=== PATIENT | female | born 1935 | race Caucasian/White ===

== ENCOUNTER → 2018-11-09 | Day surgery (SDC) | payer OTHER ==
--- NOTE | 2018-11-15 16:44 | PATH ---
Cytology Non-Gynecological Report Patient Name: INGA MEDINA [facility]. Rec. #: [id number] /Age/Gender: 1935 (Age: 83) / F Account: [id number] Location: RADIOLOGY INTER Taken: 11/10/2018 Received: 11/10/2018 Reported: 11/15/2018 Physicians: Artie Camarena M.D. Specimen(s) Received LEFT THYROID FNA Clinical History Left thyroid nodule Final Diagnosis THYROID, LEFT, FINE NEEDLE ASPIRATION: SATISFACTORY FOR EVALUATION BETHESDA CLASS II: BENIGN SMALL FOLLICULAR CELLS AND COLLOID PRESENT, CONSISTENT WITH A BENIGN FOLLICULAR NODULE. Electronically Signed Raya Castaneda M.D. Gross Description Received are eight direct smears, four of which are air-dried and Diff-Quik stained, and four of which are alcohol fixed and Pap stained. Also received is 20 ml of bloody formalin from which one cellblock is prepared.
== END | disposition home or self-care (01) ==
LOC: JRADIR 08:27
PROVIDERS: ATTEND Internal Medicine Endocrinology, Diabetes & Metabolism
PROC: 0GBG3ZX Excision of Left Thyroid Gland Lobe, Percutaneous Approach, Diagnostic (ICD-10-PCS; principal; 2018-11-09)
PROC: BG44ZZZ Ultrasonography of Thyroid Gland (ICD-10-PCS; 2018-11-09)
DX: D34 Benign neoplasm of thyroid gland (principal)
CPT/HCPCS: 10005; 76942; 88173; 88305-TC

== ENCOUNTER → 2018-11-16 | Day surgery (SDC) | payer OTHER ==
--- NOTE | 2018-11-18 18:03 | PATH ---
Cytology Non-Gynecological Report Patient Name: INGA MEDINA [facility]. Rec. #: [id number] /Age/Gender: 1935 (Age: 83) / F Account: [id number] Location: RADIOLOGY INTER Taken: 11/16/2018 Received: 11/16/2018 Reported: 11/18/2018 Physicians: Artie Camarena M.D. Specimen(s) Received RIGHT THYROID FNA Clinical History Right thyroid nodule Final Diagnosis THYROID, RIGHT, FINE NEEDLE ASPIRATION: SATISFACTORY FOR EVALUATION BETHESDA CLASS II: BENIGN SMALL FOLLICULAR CELLS, MACROPHAGES, AND COLLOID PRESENT, CONSISTENT WITH A BENIGN NODULE. Electronically Signed Raya Castaneda M.D. Gross Description Received are eight direct smears, four of which are air-dried and Diff-Quik stained, and four of which are alcohol fixed and Pap stained. Also received is 20 ml of bloody formalin from which one cellblock is prepared.
== END | disposition home or self-care (01) ==
LOC: JRADIR 08:52
PROVIDERS: ATTEND Internal Medicine Endocrinology, Diabetes & Metabolism
PROC: 0G9K3ZX Drainage of Thyroid Gland, Percutaneous Approach, Diagnostic (ICD-10-PCS; principal; 2018-11-16)
DX: E04.1 Nontoxic single thyroid nodule (principal)
CPT/HCPCS: 76942; 88173; 88305-TC

== ENCOUNTER 2021-01-02 12:22 | Inpatient (IN) | payer OTHER ==
[2021-01-02] MEDS ORDERED: ACETAMINOPHEN 325 MG TABLET (FP) PO ONE (13:06)
[2021-01-02] MEDS ORDERED: ACETAMINOPHEN 325 MG TABLET (FP) ONE ×2 (14:14→14:26)
[2021-01-02 15:38] LABS: BASO % 0.6 % (0-2.0); EOS % 1.4 % (0-4.5); HEMATOCRIT 44.6 % (32.4-45.2); HEMOGLOBIN 15.1 GM/dL (10.7-15.3); LYMPH % 18.8 % (8-40); MCHC 33.8 g/dl (32.0-36.0); MEAN CELL VOLUME 85.5 fl (80-96); MEAN PLT VOLUME 7.8 fl (7.5-11.1); MONO % 6.8 % (3.8-10.2); NEUT % 72.4 % (42.8-82.8); PLATELET COUNT 352 10^3/uL (134-434); RBC 5.21 M/mm3 (3.60-5.2); RDW 13.6 % (11.6-15.6); WHITE BLOOD COUNT 12.2 K/mm3 (4.0-10.0)
[2021-01-02 15:44] LABS: INR 0.99 (0.83-1.09); PROTHROMBIN TIME (PATIENT) 11.1 SEC (9.7-13.0)
[2021-01-02 15:47] LABS: ACTIVATED PTT 27.9 SECONDS (25.2-36.5)
[2021-01-02 15:58] LABS: CHLORIDE 101 mmol/L (98-107); SODIUM 137 mmol/L (136-145)
[2021-01-02 16:02] LABS: ANION GAP 11 MMOL/L (8-16); BLOOD UREA NITROGEN 31.1 mg/dL (7-18); CALCIUM 9.7 mg/dL (8.5-10.1); CO2 25 mmol/L (21-32)
[2021-01-02 16:03] LABS: GLUCOSE,RANDOM 114 mg/dL (74-106); MAGNESIUM 1.8 mg/dL (1.8-2.4)
[2021-01-02 16:05] LABS: SGOT/AST 22 U/L (15-37); SGPT/ALT 25 U/L (13-61)
[2021-01-02 16:06] LABS: CREATININE 0.9 mg/dL (0.55-1.3)
[2021-01-02 16:07] LABS: BILIRUBIN,TOTAL 0.6 mg/dL (0.2-1); TOT PROT 8.3 g/dl (6.4-8.2)
[2021-01-02 16:08] LABS: ALK PHOS 117 U/L (45-117)
[2021-01-02 18:16] LABS: URINE APPEARANCE CLEAR; URINE BILIRUBIN NEGATIVE (NEGATIVE); URINE COLOR YELLOW; URINE GLUCOSE (UA) NEGATIVE (NEGATIVE); URINE KETONE NEGATIVE (NEGATIVE); URINE LEUK ESTERASE NEGATIVE (NEGATIVE); URINE NITRITE NEGATIVE (NEGATIVE); URINE PROTEIN NEGATIVE (NEGATIVE); URINE UROBILINOGEN 0.2 mg/dL (0.2-1.0)
[2021-01-02] MEDS: HEPARIN NA (PORCINE) 5,000 UNITS/ML 1ML VIAL SQ SCH (22:37)
[2021-01-03 00:52] VITALS: BMI 28.5
[2021-01-03 06:41] VITALS: TEMP 98
[2021-01-03] MEDS ORDERED: LEVOTHYROXINE NA 25 MCG TABLET (FP) PO SCH (07:00)
[2021-01-03 07:15] LABS: HEMATOCRIT 39.7 % (32.4-45.2); HEMOGLOBIN 13.6 GM/dL (10.7-15.3); MCH 28.9 pg (25.7-33.7); MCHC 34.2 g/dl (32.0-36.0); MEAN CELL VOLUME 84.7 fl (80-96); MEAN PLT VOLUME 7.8 fl (7.5-11.1); PLATELET COUNT 321 10^3/uL (134-434); RBC 4.69 M/mm3 (3.60-5.2); RDW 14.3 % (11.6-15.6); WHITE BLOOD COUNT 7.8 K/mm3 (4.0-10.0)
[2021-01-03 07:42] LABS: CHLORIDE 103 mmol/L (98-107); SODIUM 139 mmol/L (136-145)
[2021-01-03 07:59] LABS: ANION GAP 11 MMOL/L (8-16); CALCIUM 9.8 mg/dL (8.5-10.1); CO2 26 mmol/L (21-32)
[2021-01-03 08:00] LABS: ALBUMIN 3.2 g/dl (3.4-5.0); BLOOD UREA NITROGEN 28.9 mg/dL (7-18); GLUCOSE,RANDOM 126 mg/dL (74-106)
[2021-01-03 08:03] LABS: SGOT/AST 19 U/L (15-37); SGPT/ALT 21 U/L (13-61)
[2021-01-03 08:04] LABS: CREATININE 0.9 mg/dL (0.55-1.3)
[2021-01-03 08:05] LABS: BILIRUBIN,TOTAL 0.6 mg/dL (0.2-1); TOT PROT 6.8 g/dl (6.4-8.2)
[2021-01-03 08:06] LABS: ALK PHOS 96 U/L (45-117)
[2021-01-03] MEDS: HEPARIN NA (PORCINE) 5,000 UNITS/ML 1ML VIAL SQ SCH (09:02)
[2021-01-03] MEDS ORDERED: LEVOTHYROXINE NA 50 MCG TABLET (FP) PO SCH (09:12)
[2021-01-03] MEDS ORDERED: LEVOTHYROXINE NA 100 MCG TABLET (FP) PO SCH ×2 (10:00)
[2021-01-03] MEDS ORDERED: LOSARTAN POTASSIUM 50 MG TABLET PO SCH (10:00)
[2021-01-03 16:22] VITALS: BP 137/82; PULSE 59
== END 2021-01-03 16:23 | disposition home or self-care (01) | DRG 312 ==
LOC: JER 12:22 → OBSVTOIN 13:07 → JERBED 13:07 → J4W 21:58
PROVIDERS: ADMIT Family Medicine; ATTEND Family Medicine
DX: R55 Syncope and collapse (principal); I10 Essential (primary) hypertension; E11.9 Type 2 diabetes mellitus without complications; E21.3 Hyperparathyroidism, unspecified; D72.829 Elevated white blood cell count, unspecified; R82.71 Bacteriuria; I45.10 Unspecified right bundle-branch block; R00.1 Bradycardia, unspecified
CPT/HCPCS: 36415; 70450-TC; 71046-TC-FY; 72125-TC; 73590-TC-RT-FY; 73610-TC-RT-FY; 73630-TC-RT-FY; 80053; 81003; 82550; 82962; 83036; 83735; 84100; 84443; 84484; 85025; 85027; 85610; 85730; 86850; 86900; 86901; 87086; 87186; 93005; 93010; 93306-TC; 97116-GP; 97161-GP; 99285-25; C9803; J1644; U0003; U0005